=== PATIENT | female | born 1985 | race Caucasian/White ===

== ENCOUNTER 2018-08-04 07:50 | Inpatient (IN) ==
[2018-08-04] MEDS ORDERED: Bacitracin/Polymyxin B PACKET TP STA (08:00)
[2018-08-04] MEDS ORDERED: Tdap (Boostrix) Vaccine 0.5 ML SYRINGE IM ONE (08:00)
--- NOTE | 2018-08-04 08:05 | Emergency Department Note ---
Disposition Clinical Impression: Laceration, Suicidal ideation UTI (urinary tract infection) Qualifiers: Urinary tract infection type: acute cystitis Hematuria presence: without hematuria Qualified Code(s): N30.00 - Acute cystitis without hematuria Disposition: Admitted As Inpatient Condition: Good Time of Disposition: 12:18 General Adult HPI - General Chief complaint: ED Wound/Laceration Stated complaint: self inflicted r arm injury Time Seen by Provider: 08/04/18 07:51 Source: patient Mode of arrival: EMS Limitations: no limitations Nursing Notes Reviewed: Yes Vital Signs Reviewed: Yes - History of Present Illness HPI Narrative: Alert and oriented nontoxic-appearing 33-year-old female presents by EMS for evaluation after self-inflicted laceration to the right forearm. She states a long-standing history of "cutting" in an attempt to vent whenever her anxiety increases. She states that she has cut herself on numerous instances in the past. She denies this being any type of attempt to inflict permanent, long lasting, or serious self-harm. She denies any current suicidal ideations. She denies any homicidal ideations. She denies any auditory or visual hallucinations. She states that she had been followed with a psychiatrist however has not been seen by said psychiatrist for approximately one year after "missing an appointment" and being discharged from the practice. She states that she had been medicated for bipolar disorder as well as anxiety. She has been off her medications for the past one year. She has no additional complaints at the time of her arrival. Tetanus immunization status is not up-to -date. Onset (ago): hour(s) (Approximately 1 hour prior to arrival) Location: right, upper extremity Pain Severity: moderate Pain Scale: 5 Quality: aching Consistency: constant Improves with: nothing Worsens with: nothing Treatments Prior to Arrival: other (Bandage) - Related Data Home Medications Medication Instructions Recorded Confirmed Tylenol 01/21/18 Previous Rx's Medication Instructions Recorded Albuterol Sulfate [Albuterol 1 - 2 puff IH Q6HR PRN #1 01/21/18 Inhaler] [email or web address] Amoxicillin 875 mg PO BID #20 tablet 01/21/18 predniSONE [PredniSONE] 0 mg PO DAILY #10 tablet 01/21/18 Azithromycin [Zithromax] 0 tab PO DAILY #6 tablet 01/27/18 Cyclobenzaprine [Flexeril] 10 mg PO HS PRN #10 tablet 01/27/18 Ibuprofen [Ibu] 600 mg PO Q6H PRN #30 tablet 07/07/18 Allergies Allergy/AdvReac Type Severity Reaction Status Date / Time Iodinated Contrast- Oral and Allergy Swelling Verified 08/01/18 20:56 IV Dye of [Iodinated Contrast Media - Lip/Tongue/Throat IV Dye] chlorpromazine AdvReac Cramping Verified 08/01/18 20:56 [From Thorazine] of the Muscles tramadol AdvReac Vomiting Verified 08/01/18 20:56 trazodone AdvReac Joint Pain Verified 08/01/18 20:56 All systems ED: reviewed and negative except as stated. Review of Systems: As Per HPI Constitutional: Denies: fever, chills, weakness, weight change Eyes: Denies: eye pain, eye discharge, vision change ENT ED: Denies: ear pain, throat pain, dental pain, hearing loss, epistaxis, congestion, dysphagia Cardiovascular: Denies: chest pain, palpitations, dyspnea on exertion, edema, syncope Respiratory: Denies: cough, dyspnea, wheezes, hemoptysis, stridor Gastrointestinal: Denies: abdominal pain, nausea, vomiting, diarrhea, constipation, hematemesis, melena, hematochezia Genitourinary: Denies: dysuria, frequency, hematuria, discharge Musculoskeletal: Denies: back pain, neck pain, arthralgia, myalgia Integumentary: Reports: as per HPI, other (Right forearm laceration). Denies: rash, abrasion, lesions Neurological: Denies: headache, weakness, numbness, paresthesias, confusion, abnormal gait, vertigo Psychiatric: Denies: anxiety, depression, suicidal thoughts, homicidal thoughts , auditory hallucinations, visual hallucinations Endocrine: Denies: fatigue Hematological/Lymphatic: Denies: easy bleeding, easy bruising Allergic/Immunologic: Denies: facial swelling, urticaria Past Medical History - Past Medical History Attestation: Yes The following information was validated with the patient. Source: patient, nursing notes reviewed Medical history: Reports: asthma, diabetes Surgical history: Reports: no surgical history Psychiatric history: Reports: anxiety, bipolar, depression COUNSELOR DORMITORY history: Reports: spontaneous , other - Social History Smoking Status: Current every day smoker Smokeless Tobacco Status: No Alcohol use: Reports: rarely Drug use: Reports: methamphetamine, prescription drug abuse Physical Exam - General Limitations: no limitations General appearance: alert, in no apparent distress - Head Head exam: atraumatic, normocephalic, normal inspection - Eye Eye exam: Present: normal appearance, PERRL, EOMI. Absent: nystagmus - ENT ENT exam: mucous membranes moist - Neck Neck exam: Present: normal inspection, full ROM, trachea midline - Chest Chest inspection: Present: normal inspection, symmetric chest wall rise - Respiratory Respiratory exam: Present: normal lung sounds bilaterally. Absent: respiratory distress, wheezes, stridor, accessory muscle use, prolonged expiratory phase - Cardiovascular Cardiovascular exam: Present: regular rate, normal rhythm, normal heart sounds - Abdominal Exam Abdominal exam: Present: soft, Non-Tender, normal bowel sounds - Expanded Upper Extremity Exam Forearm/Wrist exam: Present: laceration Neuromotor exam: Normal: wrist extension, thumb opposition, fingers 2-5 abduction Neurosensory exam: Normal: radial nerve, ulnar nerve, 2-point discrimination Hand tendon exam: Normal: flexor digitorum profundus (location), extensor tendon (location) Vascular exam: Normal: capillary refill, radial pulse, ulnar pulse - Neurological Exam Neurological exam: Present: alert, oriented X3 - Psychiatric Psychiatric exam: Present: normal affect, normal mood. Absent: depressed, agitated, anxious, homicidal ideation, suicidal ideation - Skin Skin exam: Present: warm, dry, normal color - Expanded Skin Exam Type of lesion: Present: laceration Distribution: RUE 1 - Linear laceration noted that extends from just proximal to the right wrist to the region just distal to the right antecubital region. At its deepest point , the laceration measures approximately 0.2 cm. Wound margins well approximated. Scant bleeding noted at this time. No foreign bodies or debris. Course Course Narrative: Laceration cleansed thoroughly prior to any attempts at closure. No obvious retained foreign body or debris. Laceration repair performed by Nash, medical student, under my direct supervision. Please see Nash's procedure note for wound closure details. 0945: The patient is slightly hypokalemic at 3.3 and her urinalysis shows a nitrite positive urinary tract infection, both of which will have treatment initiated here in the emergency department. I spoke with Sujatha, nurse with [facility]. And he states that client support representative from inpatient psychiatry will evaluate the patient as soon as possible. 1215: I have been normal notified by [facility] personnel that the patient will be admitted to the inpatient psychiatric unit for further management, as the patient is not currently under the care/management of a psychiatrist for her anxiety, as well as the fact that today's self-inflicted laceration is deeper and more extensive than she has accomplished in the past. Vital Signs Temperature 99.4 F 08/04/18 07:56 Pulse Rate 96 08/04/18 07:56 Respiratory Rate 16 08/04/18 07:56 Blood Pressure 154/111 08/04/18 07:56 O2 Sat by Pulse Oximetry 98 08/04/18 07:56 Temperature 97.7 F 08/04/18 11:20 Pulse Rate 65 08/04/18 11:20 Respiratory Rate 16 08/04/18 11:20 Blood Pressure 117/75 08/04/18 11:20 O2 Sat by Pulse Oximetry 97 08/04/18 11:20 Oxygen Delivery Oxygen Delivery Room Air Medical Decision Making - Medical Records Medical records reviewed: Yes I reviewed the patient's medical records. - Lab Data Lab results reviewed: Yes I reviewed the patient's lab results. Lab results narrative: Lab Results 08/04/18 08/04/18 08/04/18 Range/Units 08:14 08:14 08:14 WBC (4.3-11.1) K/mcL RBC (3.82-4.97) M/mcL Hgb (11.5-15.4) g/dL Hct (35.3-44.9) % MCV (83.0-100.0) fL MCH (28.0-33.3) pg MCHC (31.6-35.5) g/dL RDW (11.5-14.5) % Plt Count (140-400) K/mcL MPV (9.4-12.4) fL Immature Gran % (0-4) % Seg Neutrophils % % Lymphocytes % % Monocytes % % Eosinophils % % Basophils % % Neutrophils # (1.6-8.9) K/mcL Lymphocytes # (0.6-4.6) K/mcL Monocytes # (0.0-1.3) K/mcL Eosinophils # (0.0-0.6) K/mcL Basophils # (0.0-0.2) K/mcL Sodium (136-145) mEq/L Potassium (3.5-5.1) mEq/L Chloride (98-107) mEq/L Carbon Dioxide (23-29) mEq/L BUN (6-20) mg/dL Creatinine (0.60-1.20) mg/dL Est GFR ( Amer) (> 60) Est GFR (Non-Af Amer) (> 60) BUN/Creatinine Ratio (6-26) Glucose (70-105) mg/dL Calculated Osmolality (280-300) Calcium (8.6-10.3) mg/dL Urine Color Dark Yellow (Yellow) Urine Clarity Clear (Clear) Urine pH 6.0 (5.0-8.0) pH Units Ur Specific [place] > 1.030 H (1.010-1.025) Urine Protein 100 H (Neg-Trace) mg/dL Urine Glucose (UA) Normal (Normal) mg/dL Urine Ketones Trace H (Negative) mg/dL Urine Blood Negative (Negative) Urine Nitrite Positive A (Negative) Urine Bilirubin Negative (Negative) Urine Urobilinogen Normal (Normal) mg/dL Ur Leukocyte Esterase Small H (Negative) Urine Microscopic RBC 0-3 (0-3) per hpf Urine Microscopic WBC 5-15 H (0-3) per hpf Ur Squamous Epith Cells Many H (None-Few) per lpf Calcium Oxalate Crystal Present Urine Bacteria Many H (None-Few) per hpf Hyaline Casts Few (None-Few) per lpf Urine Test Negative (Negative) Salicylates (15.0-30.0) mg/dL Urine Opiates Screen Negative (Bxpnuf=192) ng/mL Acetaminophen (10-20) mcg/mL Ur Barbiturates Screen Negative (Omnvxb=130) ng/mL Ur Phencyclidine Scrn Negative (Cutoff=25) ng/mL Ur Amphetamines Screen Positive H (Xnozix=0092) ng/mL U Benzodiazepines Scrn Negative (Imrpyo=806) ng/mL Urine Cocaine Screen Negative (Cutoff= 300) ng/mL U Marijuana (THC) Screen Negative (Cutoff = 50) ng/mL Ur Drug Screen Interp See Below Ethyl Alcohol (Less than 10) mg/dL 08/04/18 08/04/18 Range/Units 08:59 08:59 WBC 11.9 H (4.3-11.1) K/mcL RBC 4.83 (3.82-4.97) M/mcL Hgb 14.8 (11.5-15.4) g/dL Hct 43.2 (35.3-44.9) % MCV 89.4 (83.0-100.0) fL MCH 30.6 (28.0-33.3) pg MCHC 34.3 (31.6-35.5) g/dL RDW 12.6 (11.5-14.5) % Plt Count 236 (140-400) K/mcL MPV 11.4 (9.4-12.4) fL Immature Gran % 0.3 (0-4) % Seg Neutrophils % 53.5 % Lymphocytes % 36.0 % Monocytes % 7.2 % Eosinophils % 2.4 % Basophils % 0.6 % Neutrophils # 6.4 (1.6-8.9) K/mcL Lymphocytes # 4.3 (0.6-4.6) K/mcL Monocytes # 0.9 (0.0-1.3) K/mcL Eosinophils # 0.3 (0.0-0.6) K/mcL Basophils # 0.1 (0.0-0.2) K/mcL Sodium 140 (136-145) mEq/L Potassium 3.3 L (3.5-5.1) mEq/L Chloride 106 (98-107) mEq/L Carbon Dioxide 28 (23-29) mEq/L BUN 14 (6-20) mg/dL Creatinine 0.80 (0.60-1.20) mg/dL Est GFR ( Amer) > 60 (> 60) Est GFR (Non-Af Amer) > 60 (> 60) BUN/Creatinine Ratio 18 (6-26) Glucose 107 H (70-105) mg/dL Calculated Osmolality 291 (280-300) Calcium 10.2 (8.6-10.3) mg/dL Urine Color (Yellow) Urine Clarity (Clear) Urine pH (5.0-8.0) pH Units Ur Specific [place] (1.010-1.025) Urine Protein (Neg-Trace) mg/dL Urine Glucose (UA) (Normal) mg/dL Urine Ketones (Negative) mg/dL Urine Blood (Negative) Urine Nitrite (Negative) Urine Bilirubin (Negative) Urine Urobilinogen (Normal) mg/dL Ur Leukocyte Esterase (Negative) Urine Microscopic RBC (0-3) per hpf Urine Microscopic WBC (0-3) per hpf Ur Squamous Epith Cells (None-Few) per lpf Calcium Oxalate Crystal Urine Bacteria (None-Few) per hpf Hyaline Casts (None-Few) per lpf Urine Test (Negative) Salicylates < 2.5 L (15.0-30.0) mg/dL Urine Opiates Screen (Vhywwl=952) ng/mL Acetaminophen < 10 L (10-20) mcg/mL Ur Barbiturates Screen (Mbkuis=160) ng/mL Ur Phencyclidine Scrn (Cutoff=25) ng/mL Ur Amphetamines Screen (Skkzkk=3656) ng/mL U Benzodiazepines Scrn (Jakhzv=969) ng/mL Urine Cocaine Screen (Cutoff= 300) ng/mL U Marijuana (THC) Screen (Cutoff = 50) ng/mL Ur Drug Screen Interp Ethyl Alcohol < 10 (Less than 10) mg/dL Result diagrams: 08/04/18 08:59 08/04/18 08:59 Lab Results 08/04/18 08/04/18 08/04/18 Range/Units 08:14 08:14 08:14 WBC (4.3-11.1) K/mcL RBC (3.82-4.97) M/mcL Hgb (11.5-15.4) g/dL Hct (35.3-44.9) % MCV (83.0-100.0) fL MCH (28.0-33.3) pg MCHC (31.6-35.5) g/dL RDW (11.5-14.5) % Plt Count (140-400) K/mcL MPV (9.4-12.4) fL Immature Gran % (0-4) % Seg Neutrophils % % Lymphocytes % % Monocytes % % Eosinophils % % Basophils % % Neutrophils # (1.6-8.9) K/mcL Lymphocytes # (0.6-4.6) K/mcL Monocytes # (0.0-1.3) K/mcL Eosinophils # (0.0-0.6) K/mcL Basophils # (0.0-0.2) K/mcL Sodium (136-145) mEq/L Potassium (3.5-5.1) mEq/L Chloride (98-107) mEq/L Carbon Dioxide (23-29) mEq/L BUN (6-20) mg/dL Creatinine (0.60-1.20) mg/dL Est GFR ( Amer) (> 60) Est GFR (Non-Af Amer) (> 60) BUN/Creatinine Ratio (6-26) Glucose (70-105) mg/dL Calculated Osmolality (280-300) Calcium (8.6-10.3) mg/dL Urine Color Dark Yellow (Yellow) Urine Clarity Clear (Clear) Urine pH 6.0 (5.0-8.0) pH Units Ur Specific [place] > 1.030 H (1.010-1.025) Urine Protein 100 H (Neg-Trace) mg/dL Urine Glucose (UA) Normal (Normal) mg/dL Urine Ketones Trace H (Negative) mg/dL Urine Blood Negative (Negative) Urine Nitrite Positive A (Negative) Urine Bilirubin Negative (Negative) Urine Urobilinogen Normal (Normal) mg/dL Ur Leukocyte Esterase Small H (Negative) Urine Microscopic RBC 0-3 (0-3) per hpf Urine Microscopic WBC 5-15 H (0-3) per hpf Ur Squamous Epith Cells Many H (None-Few) per lpf Calcium Oxalate Crystal Present Urine Bacteria Many H (None-Few) per hpf Hyaline Casts Few (None-Few) per lpf Urine Test Negative (Negative) Salicylates (15.0-30.0) mg/dL Urine Opiates Screen Negative (Rgakag=795) ng/mL Acetaminophen (10-20) mcg/mL Ur Barbiturates Screen Negative (Enaixg=662) ng/mL Ur Phencyclidine Scrn Negative (Cutoff=25) ng/mL Ur Amphetamines Screen Positive H (Dikyvu=9636) ng/mL U Benzodiazepines Scrn Negative (Prpkuz=638) ng/mL Urine Cocaine Screen Negative (Cutoff= 300) ng/mL U Marijuana (THC) Screen Negative (Cutoff = 50) ng/mL Ur Drug Screen Interp See Below Ethyl Alcohol (Less than 10) mg/dL 08/04/18 08/04/18 Range/Units 08:59 08:59 WBC 11.9 H (4.3-11.1) K/mcL RBC 4.83 (3.82-4.97) M/mcL Hgb 14.8 (11.5-15.4) g/dL Hct 43.2 (35.3-44.9) % MCV 89.4 (83.0-100.0) fL MCH 30.6 (28.0-33.3) pg MCHC 34.3 (31.6-35.5) g/dL RDW 12.6 (11.5-14.5) % Plt Count 236 (140-400) K/mcL MPV 11.4 (9.4-12.4) fL Immature Gran % 0.3 (0-4) % Seg Neutrophils % 53.5 % Lymphocytes % 36.0 % Monocytes % 7.2 % Eosinophils % 2.4 % Basophils % 0.6 % Neutrophils # 6.4 (1.6-8.9) K/mcL Lymphocytes # 4.3 (0.6-4.6) K/mcL Monocytes # 0.9 (0.0-1.3) K/mcL Eosinophils # 0.3 (0.0-0.6) K/mcL Basophils # 0.1 (0.0-0.2) K/mcL Sodium 140 (136-145) mEq/L Potassium 3.3 L (3.5-5.1) mEq/L Chloride 106 (98-107) mEq/L Carbon Dioxide 28 (23-29) mEq/L BUN 14 (6-20) mg/dL Creatinine 0.80 (0.60-1.20) mg/dL Est GFR ( Amer) > 60 (> 60) Est GFR (Non-Af Amer) > 60 (> 60) BUN/Creatinine Ratio 18 (6-26) Glucose 107 H (70-105) mg/dL Calculated Osmolality 291 (280-300) Calcium 10.2 (8.6-10.3) mg/dL Urine Color (Yellow) Urine Clarity (Clear) Urine pH (5.0-8.0) pH Units Ur Specific [place] (1.010-1.025) Urine Protein (Neg-Trace) mg/dL Urine Glucose (UA) (Normal) mg/dL Urine Ketones (Negative) mg/dL Urine Blood (Negative) Urine Nitrite (Negative) Urine Bilirubin (Negative) Urine Urobilinogen (Normal) mg/dL Ur Leukocyte Esterase (Negative) Urine Microscopic RBC (0-3) per hpf Urine Microscopic WBC (0-3) per hpf Ur Squamous Epith Cells (None-Few) per lpf Calcium Oxalate Crystal Urine Bacteria (None-Few) per hpf Hyaline Casts (None-Few) per lpf Urine Test (Negative) Salicylates < 2.5 L (15.0-30.0) mg/dL Urine Opiates Screen (Txtzpe=231) ng/mL Acetaminophen < 10 L (10-20) mcg/mL Ur Barbiturates Screen (Lzhtby=593) ng/mL Ur Phencyclidine Scrn (Cutoff=25) ng/mL Ur Amphetamines Screen (Obxdvr=1033) ng/mL U Benzodiazepines Scrn (Fifdvz=854) ng/mL Urine Cocaine Screen (Cutoff= 300) ng/mL U Marijuana (THC) Screen (Cutoff = 50) ng/mL Ur Drug Screen Interp Ethyl Alcohol < 10 (Less than 10) mg/dL
[2018-08-04] MEDS ORDERED: Lidocaine/EPI 1:100k 1% 30 ML VIAL INFILT ONE (08:07)
--- NOTE | 2018-08-04 08:11 | Emergency Department Note ---
Disposition Clinical Impression: Laceration, Suicidal ideation UTI (urinary tract infection) Qualifiers: Urinary tract infection type: acute cystitis Hematuria presence: without hematuria Qualified Code(s): N30.00 - Acute cystitis without hematuria Disposition: Admitted As Inpatient Time of Disposition: 12:45 General Adult HPI - General Chief complaint: ED Wound/Laceration Stated complaint: self inflicted r arm injury Time Seen by Provider: 08/04/18 07:51 Source: patient Mode of arrival: EMS Limitations: no limitations - History of Present Illness Location: right, upper extremity Pain Scale: 5 Quality: aching Improves with: nothing Worsens with: nothing Treatments Prior to Arrival: other (Bandage) - Related Data Home Medications Medication Instructions Recorded Confirmed Tylenol 01/21/18 Previous Rx's Medication Instructions Recorded Albuterol Sulfate [Albuterol 1 - 2 puff IH Q6HR PRN #1 01/21/18 Inhaler] [email or web address] Amoxicillin 875 mg PO BID #20 tablet 01/21/18 predniSONE [PredniSONE] 0 mg PO DAILY #10 tablet 01/21/18 Azithromycin [Zithromax] 0 tab PO DAILY #6 tablet 01/27/18 Cyclobenzaprine [Flexeril] 10 mg PO HS PRN #10 tablet 01/27/18 Ibuprofen [Ibu] 600 mg PO Q6H PRN #30 tablet 07/07/18 Allergies Allergy/AdvReac Type Severity Reaction Status Date / Time Iodinated Contrast- Oral and Allergy Swelling Verified 08/01/18 20:56 IV Dye of [Iodinated Contrast Media - Lip/Tongue/Throat IV Dye] chlorpromazine AdvReac Cramping Verified 08/01/18 20:56 [From Thorazine] of the Muscles tramadol AdvReac Vomiting Verified 08/01/18 20:56 trazodone AdvReac Joint Pain Verified 08/01/18 20:56 Constitutional: Denies: fever, chills, weakness, weight change Eyes: Denies: eye pain, eye discharge, vision change ENT ED: Denies: ear pain, throat pain, dental pain, hearing loss, epistaxis, congestion, dysphagia Cardiovascular: Denies: chest pain, palpitations, dyspnea on exertion, edema, syncope Respiratory: Denies: cough, dyspnea, wheezes, hemoptysis, stridor Gastrointestinal: Denies: abdominal pain, nausea, vomiting, diarrhea, constipation, hematemesis, melena, hematochezia Genitourinary: Denies: dysuria, frequency, hematuria, discharge Musculoskeletal: Denies: back pain, neck pain, arthralgia, myalgia Integumentary: Reports: as per HPI, other (Right forearm laceration). Denies: rash, abrasion, lesions Neurological: Denies: headache, weakness, numbness, paresthesias, confusion, abnormal gait, vertigo Psychiatric: Denies: anxiety, depression, suicidal thoughts, homicidal thoughts , auditory hallucinations, visual hallucinations Endocrine: Denies: fatigue Hematological/Lymphatic: Denies: easy bleeding, easy bruising Allergic/Immunologic: Denies: facial swelling, urticaria Past Medical History - Past Medical History Medical history: Reports: asthma, diabetes Surgical history: Reports: no surgical history Psychiatric history: Reports: anxiety, bipolar, depression FEE CLERK history: Reports: spontaneous , other - Social History Smoking Status: Current every day smoker Smokeless Tobacco Status: No Alcohol use: Reports: rarely Drug use: Reports: methamphetamine, prescription drug abuse Physical Exam - General Limitations: no limitations General appearance: alert, in no apparent distress Course Vital Signs Temperature 99.4 F 08/04/18 07:56 Pulse Rate 96 08/04/18 07:56 Respiratory Rate 16 08/04/18 07:56 Blood Pressure 154/111 08/04/18 07:56 O2 Sat by Pulse Oximetry 98 08/04/18 07:56 Temperature 97.7 F 08/04/18 11:20 Pulse Rate 65 08/04/18 11:20 Respiratory Rate 16 08/04/18 11:20 Blood Pressure 117/75 08/04/18 11:20 O2 Sat by Pulse Oximetry 97 08/04/18 11:20 Oxygen Delivery Oxygen Delivery Room Air Procedures - Laceration Laceration 1 Site: upper extremity Side (If applicable): right Description: linear Depth: simple, single layer Local Anesthetic: lidocaine 1%, with epi Amount of Anesthesia Used (mL): 5 Pre-repair: wound explored, irrigated extensively, deep structures intact Skin layer closed with: nylon Size: 4-0 Number of sutures/guerline: 10 Technique: simple, interrupted Medical Decision Making - Lab Data Result diagrams: 08/04/18 08:59 08/04/18 08:59 Lab Results 08/04/18 08/04/1808/04/18 Range/Units 08:14 08:14 08:14 WBC (4.3-11.1) K/mcL RBC (3.82-4.97) M/mcL Hgb (11.5-15.4) g/dL Hct (35.3-44.9) % MCV (83.0-100.0) fL MCH (28.0-33.3) pg MCHC (31.6-35.5) g/dL RDW (11.5-14.5) % Plt Count (140-400) K/mcL MPV (9.4-12.4) fL Immature Gran % (0-4) % Seg Neutrophils % % Lymphocytes % % Monocytes % % Eosinophils % % Basophils % % Neutrophils # (1.6-8.9) K/mcL Lymphocytes # (0.6-4.6) K/mcL Monocytes # (0.0-1.3) K/mcL Eosinophils # (0.0-0.6) K/mcL Basophils # (0.0-0.2) K/mcL Sodium (136-145) mEq/L Potassium (3.5-5.1) mEq/L Chloride (98-107) mEq/L Carbon Dioxide (23-29) mEq/L BUN (6-20) mg/dL Creatinine (0.60-1.20) mg/dL Est GFR ( Amer) (> 60) Est GFR (Non-Af Amer) (> 60) BUN/Creatinine Ratio (6-26) Glucose (70-105) mg/dL Calculated Osmolality (280-300) Calcium (8.6-10.3) mg/dL Urine Color Dark Yellow (Yellow) Urine Clarity Clear (Clear) Urine pH 6.0 (5.0-8.0) pH Units Ur Specific [place] > 1.030 H (1.010-1.025) Urine Protein 100 H (Neg-Trace) mg/dL Urine Glucose (UA) Normal (Normal) mg/dL Urine Ketones Trace H (Negative) mg/dL Urine Blood Negative (Negative) Urine Nitrite Positive A (Negative) Urine Bilirubin Negative (Negative) Urine Urobilinogen Normal (Normal) mg/dL Ur Leukocyte Esterase Small H (Negative) Urine Microscopic RBC 0-3 (0-3) per hpf Urine Microscopic WBC 5-15 H (0-3) per hpf Ur Squamous Epith Cells Many H (None-Few) per lpf Calcium Oxalate Crystal Present Urine Bacteria Many H (None-Few) per hpf Hyaline Casts Few (None-Few) per lpf Urine Test Negative (Negative) Salicylates (15.0-30.0) mg/dL Urine Opiates Screen Negative (Vvhvrm=274) ng/mL Acetaminophen (10-20) mcg/mL Ur Barbiturates Screen Negative (Wqjyfu=471) ng/mL Ur Phencyclidine Scrn Negative (Cutoff=25) ng/mL Ur Amphetamines Screen Positive H (Cnetmk=9771) ng/mL U Benzodiazepines Scrn Negative (Nozmtx=457) ng/mL Urine Cocaine Screen Negative (Cutoff= 300) ng/mL U Marijuana (THC) Screen Negative (Cutoff = 50) ng/mL Ur Drug Screen Interp See Below Ethyl Alcohol (Less than 10) mg/dL 08/04/18 08/04/18 Range/Units 08:59 08:59 WBC 11.9 H (4.3-11.1) K/mcL RBC 4.83 (3.82-4.97) M/mcL Hgb 14.8 (11.5-15.4) g/dL Hct 43.2 (35.3-44.9) % MCV 89.4 (83.0-100.0) fL MCH 30.6 (28.0-33.3) pg MCHC 34.3 (31.6-35.5) g/dL RDW 12.6 (11.5-14.5) % Plt Count 236 (140-400) K/mcL MPV 11.4 (9.4-12.4) fL Immature Gran % 0.3 (0-4) % Seg Neutrophils % 53.5 % Lymphocytes % 36.0 % Monocytes % 7.2 % Eosinophils % 2.4 % Basophils % 0.6 % Neutrophils # 6.4 (1.6-8.9) K/mcL Lymphocytes # 4.3 (0.6-4.6) K/mcL Monocytes # 0.9 (0.0-1.3) K/mcL Eosinophils # 0.3 (0.0-0.6) K/mcL Basophils # 0.1 (0.0-0.2) K/mcL Sodium 140 (136-145) mEq/L Potassium 3.3 L (3.5-5.1) mEq/L Chloride 106 (98-107) mEq/L Carbon Dioxide 28 (23-29) mEq/L BUN 14 (6-20) mg/dL Creatinine 0.80 (0.60-1.20) mg/dL Est GFR ( Amer) > 60 (> 60) Est GFR (Non-Af Amer) > 60 (> 60) BUN/Creatinine Ratio 18 (6-26) Glucose 107 H (70-105) mg/dL Calculated Osmolality 291 (280-300) Calcium 10.2 (8.6-10.3) mg/dL Urine Color (Yellow) Urine Clarity (Clear) Urine pH (5.0-8.0) pH Units Ur Specific [place] (1.010-1.025) Urine Protein (Neg-Trace) mg/dL Urine Glucose (UA) (Normal) mg/dL Urine Ketones (Negative) mg/dL Urine Blood (Negative) Urine Nitrite (Negative) Urine Bilirubin (Negative) Urine Urobilinogen (Normal) mg/dL Ur Leukocyte Esterase (Negative) Urine Microscopic RBC (0-3) per hpf Urine Microscopic WBC (0-3) per hpf Ur Squamous Epith Cells (None-Few) per lpf Calcium Oxalate Crystal Urine Bacteria (None-Few) per hpf Hyaline Casts (None-Few) per lpf Urine Test (Negative) Salicylates < 2.5 L (15.0-30.0) mg/dL Urine Opiates Screen (Ywuqok=257) ng/mL Acetaminophen < 10 L (10-20) mcg/mL Ur Barbiturates Screen (Zveztu=755) ng/mL Ur Phencyclidine Scrn (Cutoff=25) ng/mL Ur Amphetamines Screen (Qconrv=1552) ng/mL U Benzodiazepines Scrn (Oxllsq=385) ng/mL Urine Cocaine Screen (Cutoff= 300) ng/mL U Marijuana (THC) Screen (Cutoff = 50) ng/mL Ur Drug Screen Interp Ethyl Alcohol < 10 (Less than 10) mg/dL Attestation Statement - Attestation Attestation: For this encounter, I have reviewed the RAT CULTURIST or PA documentation, treatment plan, and medical decision making; and I have had face to face time with this patient. Patient to ED with self inflected laceration to the right forearm. Patient states she has been very anxious and she cut herself for that. She states she cut deeper than she meant to. History of cutting in the past to her right thigh. She denies SI. She has a history of anxiety and bipolar for which she is off her medicines because she missed her appointments. Patient, cooperative on examination. She has a laceration the entire length of her right forearm. Plan. Sutured wound repair. Tetanus update. We will have her evaluated by 1A. Patient has been evaluated and they feel she is appropriate for admission. Isle slip on chart.
[2018-08-04 08:23] LABS: Bilirubin,Urine Negative (Negative); Blood,Urine Negative (Negative); Clarity,Urine Clear (Clear); Color,Urine Dark Yellow (Yellow); Glucose,Urine (UA) Normal (Normal); Ketones,Urine Trace mg/dL (Negative); Leukocyte Esterase,Urine Small (Negative); Nitrite,Urine Positive (Negative); Protein,Urine 100 mg/dL (Neg-Trace); Specific Gravity,Urine > 1.030 (1.010-1.025); Urobilinogen,Urine Normal (Normal)
[2018-08-04 08:25] LABS: Bacteria,Urine Many per hpf (None-Few); Hyaline Casts,Urine Few per lpf (None-Few); Squamous Epithelial Cell,Urine Many per lpf (None-Few)
[2018-08-04 08:35] LABS: Calcium Oxalate Crystals,Urine Present; RBC,Urine 0-3 per hpf (0-3)
[2018-08-04 09:17] LABS: Basophils # 0.1 K/mcL (0.0-0.2); Basophils % 0.6 %; Eosinophils # 0.3 K/mcL (0.0-0.6); Eosinophils % 2.4 %; Hematocrit 43.2 % (35.3-44.9); Hemoglobin 14.8 g/dL (11.5-15.4); Immature Granulocytes % 0.3 % (0-4); Lymphocytes # 4.3 K/mcL (0.6-4.6); Mean Corpuscular HGB Conc 34.3 g/dL (31.6-35.5); Mean Corpuscular Hemoglobin 30.6 pg (28.0-33.3); Mean Corpuscular Volume 89.4 fL (83.0-100.0); Mean Platelet Volume 11.4 fL (9.4-12.4); Monocytes # 0.9 K/mcL (0.0-1.3); Monocytes % 7.2 %; Neutrophils # 6.4 K/mcL (1.6-8.9); Platelet Count 236 K/mcL (140-400); Red Blood Count 4.83 M/mcL (3.82-4.97); Red Cell Distribution Width 12.6 % (11.5-14.5); Segmented Neutrophils % 53.5 %
[2018-08-04 09:27] LABS: Amphetamine Screen,Urine Positive ng/mL (Cutoff=1000); Barbiturate Screen,Urine Negative ng/mL (Cutoff=200); Benzodiazepines Screen,Urine Negative ng/mL (Cutoff=200); Cannabinoid Screen,Urine Negative ng/mL (Cutoff = 50); Cocaine Screen,Urine Negative ng/mL (Cutoff= 300); Opiate Screen,Urine Negative ng/mL (Cutoff=300); Phencyclidine Screen,Urine Negative ng/mL (Cutoff=25)
[2018-08-04 09:39] LABS: Acetaminophen < 10 mcg/mL (10-20); BUN/Creatinine Ratio 18 (6-26); Blood Urea Nitrogen 14 mg/dL (6-20); Calcium 10.2 mg/dL (8.6-10.3); Carbon Dioxide 28 mEq/L (23-29); Chloride 106 mEq/L (98-107); Ethanol < 10 mg/dL (Less than 10); Glucose 107 mg/dL (70-105); Osmolality,Calculated 291 (280-300); Potassium 3.3 mEq/L (3.5-5.1); Salicylate < 2.5 mg/dL (15.0-30.0); Sodium 140 mEq/L (136-145); eGFR For Non-African Americans > 60 (> 60)
[2018-08-04] MEDS ORDERED: Sulfamethoxazole/Trimeth DS 1 EACH TABLET PO ONE (09:40)
[2018-08-04] MEDS ORDERED: *HR* LORazepam 2 MG/ML VIAL IM PRN (15:27)
[2018-08-04] MEDS ORDERED: Mag Hydrox/Al Hydrox/Simeth 30 ML UDC PO PRN (15:27)
[2018-08-04] MEDS ORDERED: *HR* LORazepam 1 MG TABLET PO PRN (15:27)
[2018-08-04] MEDS ORDERED: Haloperidol Lactate 5 MG/ML VIAL IM PRN (15:27)
[2018-08-04] MEDS ORDERED: MOM Conc 10 ML UD.LIQ PO PRN (15:27)
[2018-08-04] MEDS ORDERED: Nicotine 21 MG PATCH.TD24 TD STA ×2 (20:11→20:13)
[2018-08-04] MEDS: *HR* HYDROcodone/Acet 5/325 mg TABLET PO PRN (20:16)
[2018-08-04] MEDS: hydrOXYzine pamoate 25 MG CAPSULE PO PRN (20:20)
[2018-08-05] MEDS: *HR* HYDROcodone/Acet 5/325 mg TABLET PO PRN ×3 (04:48→21:01)
[2018-08-05] MEDS: Acetaminophen 325 MG TABLET PO PRN ×2 (08:52→14:42)
--- NOTE | 2018-08-05 11:16 | Psychiatry History & Physical ---
Date of Encounter: 08/05/18 Time of Encounter: 10:45 History of Present Illness Patient Stated Chief Complaint: i cut my self because i was very anxious Medicare Admission Attestation: For traditional Medicare patients the provided hospital inpatient services are reasonable and necessary and in the case of services not specified as inpatient -only under 42 CFR 419.22 (n), that they are appropriately provided as inpatient services in accordance 42 CFR 412.3. For Critical Access Hospital the patient may reasonably be expected to be discharged or transferred to a hospital within 96 hours after admission to the Critical Access Hospital. Admitted From: Emergency Dept Plans for Post Hospital Care: Home History of Present Illness: Ms. Johnson is a 33 year old female evaluated today. She had cut herself and got 10 stitches, she denied suicidal ideation states stressed and had panic attack , states in this siyuation i was mad and my BF was yelling so i cut it , was impuslive , angry and had used methamphetamine iv2 -3 days ago. She has been to ER last week for anxiety attack and was discharged. She has h/o Bipolar/anxiety/depression, cutting behaviours , she has been been off her medication for 1 year after was fired from her psychiatrist for missing appointment. she has have episode of kit and depression even before she started drugs. she has problem with sleep, moods, racing thoughts and impulsive , denies any psychosis, she uses meth in binges every 1-2 months for 1 week and uses iv meth. denies any other drugs or alcohol at present , she is not suicidal but has been impulsive , increase anxiety and panic attacks. Past psych : She was dx Bipolar/panic attacks, no treatment since 1 yr . has prior psych. inpatient. first time treated was in 2007. Social hx: lives with BF , unemployed , looking for job, no children, no legal. Medical obesity :, asthma, diabetes diet control deg. disc disease and carpel tunnel. Family h/o menatl illness, mother bipolar and depression and has attempted suicide. A/P: Bipolar Affective Disorder Panic attacks meth abuse. Patient has cut self and required 10 stitches and has anxiety and dperession , she denies si at present , will start medication and inpatient stabilization at present for safety. wound care bid and prn pain medication. Past Med Surg Social Fam HX - Past Medical History Medical history: asthma, diabetes - Past Psychiatric History Psychiatric history: Reports: bipolar, depression, prior suicide attempt, previous psychiatric hospitalization Family psychiatric history: Yes Family History of Suicide: Attempted - Past Surgical History Surgical History: cholecystectomy - Social History Smoking Status: Current every day smoker Smokeless Tobacco Status: No Alcohol use: rarely Drug use: methamphetamine, prescription drug abuse Occupational status: unemployed Current living situation: Home, With Family Activity Level: Independent ambulation Recent Out of Country Travel Within the Last 8 Weeks: No Exposure or Possible Exposure to Illness During Travel: No Medications & Allergies 3 Allergy/AdvReac Type Severity Reaction Status Date / Time Iodinated Contrast- Oral and Allergy Swelling Verified 08/01/18 20:56 IV Dye of [Iodinated Contrast Media - Lip/Tongue/Throat IV Dye] chlorpromazine AdvReac Cramping Verified 08/01/18 20:56 [From Thorazine] of the Muscles tramadol AdvReac Vomiting Verified 08/01/18 20:56 trazodone AdvReac Joint Pain Verified 08/01/18 20:56 Review of Systems Constitutional: Denies: fever, chills, weakness, weight change Eyes: Denies: eye pain, vision change Ears, Nose, Throat: Denies: ear pain, throat pain, dental pain, hearing loss, congestion Cardiovascular: Denies: chest pain, palpitations, dyspnea on exertion Respiratory: Denies: cough, dyspnea, wheezes Gastrointestinal: Denies: abdominal pain, nausea, vomiting, diarrhea, constipation Genitourinary female: Denies: urgency, dysuria, frequency, abnormal menses, dyspareunia Musculoskeletal: Denies: joint swelling, joint pain Integumentary: Denies: rash, lesions, pruritus Neurological: Denies: headache, weakness, numbness, memory loss Psychiatric: Reports: depression, anxiety, abnormal sleep pattern, irritability Endocrine: Denies: fatigue, heat or cold intolerance Hematologic/Lymphatic: Denies: easy bruising, lymphadenopathy Allergic/Immunologic: Denies: urticaria, itchy eyes Exam - HEENT Head exam IM: Present: atraumatic (pa) Eye exam IM: Present: EOMI, normal appearance, PERRL ENT exam IM: Present: normal exam - Neurological Neurological exam: Present: CN II-XII intact - Respiratory Respiratory exam IM: Present: CTAB - GI/Abdominal GI/Abdominal exam IM: Present: normal bowel sounds, soft. Absent: tenderness - Extremities Extremities exam IM: Present: full ROM - Skin Skin exam IM: Present: dry, warm - Additional Information Additional Information: patient has laceration on her right hand and has required 10 stitches. - Constitutional Vitals: Temp Pulse Resp BP Pulse Ox 98.4 F 85 18 125/87 97 08/05/18 09:00 08/05/18 09:00 08/05/18 09:00 08/05/18 09:00 08/04/18 11:20 General appearance: age & developmentally appropriate, well-groomed, well- nourished - Musculoskeletal Gait: normal Station: relaxed Strength & Tone: normal for patient - Psychiatric Patient Orientation: Yes Person, Yes Time, Yes Place Level of alertness: Alert Behavior: calm, cooperative Psychomotor activity: Normal Eye Contact: Maintains Eye Contact Mood Description: Anxious Affect description: congruent with mood Speech Volume: Normal Speech pattern: coherent, slowed Language & Vocabulary: consistent with education Thought Process: Racing Thought Content: Yes Intact Attention Span Ability: Capable of Focused Attention Memory Description: Grossly Intact Patient Reliability: Reliable Historian Fund of knowledge: Yes abstraction ability, Yes average Intelligence Estimate: Average Judgment: Limited Insight: Partial Results - Labs Labs: Laboratory Last Values WBC 11.9 K/mcL (4.3-11.1) H 08/04/18 08:59 RBC 4.83 M/mcL (3.82-4.97) 08/04/18 08:59 Hgb 14.8 g/dL (11.5-15.4) 08/04/18 08:59 Hct 43.2 % (35.3-44.9) 08/04/18 08:59 MCV 89.4 fL (83.0-100.0) 08/04/18 08:59 MCH 30.6 pg (28.0-33.3) 08/04/18 08:59 MCHC 34.3 g/dL (31.6-35.5) 08/04/18 08:59 RDW 12.6 % (11.5-14.5) 08/04/18 08:59 Plt Count 236 K/mcL (140-400) 08/04/18 08:59 MPV 11.4 fL (9.4-12.4) 08/04/18 08:59 Immature Gran % 0.3 % (0-4) 08/04/18 08:59 Seg Neutrophils % 53.5 % 08/04/18 08:59 Lymphocytes % 36.0 % 08/04/18 08:59 Monocytes % 7.2 % 08/04/18 08:59 Eosinophils % 2.4 % 08/04/18 08:59 Basophils % 0.6 % 08/04/18 08:59 Neutrophils # 6.4 K/mcL (1.6-8.9) 08/04/18 08:59 Lymphocytes # 4.3 K/mcL (0.6-4.6) 08/04/18 08:59 Monocytes # 0.9 K/mcL (0.0-1.3) 08/04/18 08:59 Eosinophils # 0.3 K/mcL (0.0-0.6) 08/04/18 08:59 Basophils # 0.1 K/mcL (0.0-0.2) 08/04/18 08:59 Sodium 140 mEq/L (136-145) 08/04/18 08:59 Potassium 3.3 mEq/L (3.5-5.1) L 08/04/18 08:59 Chloride 106 mEq/L (98-107) 08/04/18 08:59 Carbon Dioxide 28 mEq/L (23-29) 08/04/18 08:59 BUN 14 mg/dL (6-20) 08/04/18 08:59 Creatinine 0.80 mg/dL (0.60-1.20) 08/04/18 08:59 Est GFR ( Amer) > 60 (> 60) 08/04/18 08:59 Est GFR (Non-Af Amer) > 60 (> 60) 08/04/18 08:59 BUN/Creatinine Ratio 18 (6-26) 08/04/18 08:59 Glucose 107 mg/dL (70-105) H 08/04/18 08:59 Calculated Osmolality 291 (280-300) 08/04/18 08:59 Calcium 10.2 mg/dL (8.6-10.3) 08/04/18 08:59 Urine Color Dark Yellow (Yellow) 08/04/18 08:14 Urine Clarity Clear (Clear) 08/04/18 08:14 Urine pH 6.0 pH Units (5.0-8.0) 08/04/18 08:14 Ur Specific [place] > 1.030 (1.010-1.025) H 08/04/18 08:14 Urine Protein 100 mg/dL (Neg-Trace) H 08/04/18 08:14 Urine Glucose (UA) Normal mg/dL (Normal) 08/04/18 08:14 Urine Ketones Trace mg/dL (Negative) H 08/04/18 08:14 Urine Blood Negative (Negative) 08/04/18 08:14 Urine Nitrite Positive (Negative) A 08/04/18 08:14 Urine Bilirubin Negative (Negative) 08/04/18 08:14 Urine Urobilinogen Normal mg/dL (Normal) 08/04/18 08:14 Ur Leukocyte Esterase Small (Negative) H 08/04/18 08:14 Urine Microscopic RBC 0-3 per hpf (0-3) 08/04/18 08:14 Urine Microscopic WBC 5-15 per hpf (0-3) H 08/04/18 08:14 Ur Squamous Epith Cells Many per lpf (None-Few) H 08/04/18 08:14 Calcium Oxalate Crystal Present 08/04/18 08:14 Urine Bacteria Many per hpf (None-Few) H 08/04/18 08:14 Hyaline Casts Few per lpf (None-Few) 08/04/18 08:14 Urine Test Negative (Negative) 08/04/18 08:14 Salicylates < 2.5 mg/dL (15.0-30.0) L 08/04/18 08:59 Urine Opiates Screen Negative ng/mL (Snckdn=420) 08/04/18 08:14 Acetaminophen < 10 mcg/mL (10-20) L 08/04/18 08:59 Ur Barbiturates Screen Negative ng/mL (Oalrio=612) 08/04/18 08:14 Ur Phencyclidine Scrn Negative ng/mL (Cutoff=25) 08/04/18 08:14 Ur Amphetamines Screen Positive ng/mL (Yzhqcw=5949) H 08/04/18 08:14 U Benzodiazepines Scrn Negative ng/mL (Uadxjz=167) 08/04/18 08:14 Urine Cocaine Screen Negative ng/mL (Cutoff= 300) 08/04/18 08:14 U Marijuana (THC) Screen Negative ng/mL (Cutoff = 50) 08/04/18 08:14 Ur Drug Screen Interp See Below 08/04/18 08:14 Ethyl Alcohol < 10 mg/dL (Less than 10) 08/04/18 08:59 Assessment and Plan (1) Suicidal ideation Current visit: Yes Status: Chronic Plan: Admit inpatient for safety and stabilization, Close observation, Suicide Precautions per unit protocol, Encourage participation in unit milieu, Group Therapy, Monitor sleep, Monitor appetite, Secure weapons, Family/Supportive other meeting Risks, benefits, side effects, alternatives discussed w/pt: Yes (patient has h/o cutting self and as per cut too deep this time.) Patient agreeable to treatment: Yes (2) Anxiety Current visit: No Status: Acute Plan: Admit inpatient for safety and stabilization, Close observation, Suicide Precautions per unit protocol, Encourage participation in unit milieu, Group Therapy, Monitor sleep, Monitor appetite, Family/Supportive other meeting Risks, benefits, side effects, alternatives discussed w/pt: Yes Patient agreeable to treatment: Yes Plans for Post Hospital Care: at Home (3) Amphetamine use disorder, moderate Current visit: No Status: Acute Plan: Admit inpatient for safety and stabilization, Close observation, Suicide Precautions per unit protocol, Encourage participation in unit milieu, Group Therapy, Monitor sleep, Monitor appetite, Family/Supportive other meeting Risks, benefits, side effects, alternatives discussed w/pt: Yes Patient agreeable to treatment: Yes Plans for Post Hospital Care: at Home (4) Bipolar affective disorder Current visit: Yes Status: Acute Plan: Admit inpatient for safety and stabilization, Close observation, Suicide Precautions per unit protocol, Encourage participation in unit milieu, Group Therapy, Monitor sleep, Monitor appetite, Family/Supportive other meeting Risks, benefits, side effects, alternatives discussed w/pt: Yes Patient agreeable to treatment: Yes Plans for Post Hospital Care: at Home Qualifiers: Current bipolar episode type: depressed Current episode severity: moderate Qualified Code(s): F31.32 - Bipolar disorder, current episode depressed, moderate
[2018-08-05] MEDS: BuPROPion XL (24 HR) 150 MG TABLET PO SCH (12:08)
[2018-08-05] MEDS: Divalproex (12 HR) 250 MG TABLET PO SCH (20:59)
[2018-08-05] MEDS: hydrOXYzine pamoate 25 MG CAPSULE PO PRN (21:01)
[2018-08-06] MEDS: Divalproex (12 HR) 250 MG TABLET PO SCH ×2 (09:18→20:11)
[2018-08-06] MEDS: BuPROPion XL (24 HR) 150 MG TABLET PO SCH (09:19)
[2018-08-06] MEDS: *HR* HYDROcodone/Acet 5/325 mg TABLET PO PRN ×3 (09:19→20:11)
--- NOTE | 2018-08-06 12:40 | Psychiatry Progress Note ---
Date of Encounter: 08/06/18 Time of Encounter: 12:05 Subjective Interval history: Patient seen today ,case d/w treatment team and is denying suicidal ideation , looking dysphoric and tired , coming off methamphetamine , brief intervation done , states has planned to go to recovery programme. she is anxious and dysphoric, denies cravings. denies psychosis patient doing better, wound care consult done, hand is hurting , on prn medication for pain start discharge planning. Review of Systems Psychiatric: Reports: depression, anxiety, abnormal sleep pattern, irritability Results - Vital Signs Vital Signs: Temp Pulse Resp BP Pulse Ox 97.6 F 87 18 135/86 97 08/06/18 09:00 08/06/18 09:00 08/06/18 09:00 08/06/18 09:00 08/04/18 11:20 Assessment and Plan (1) Suicidal ideation Current visit: Yes Status: Chronic Risks, benefits, side effects, alternatives discussed w/pt: Yes (patient has h/ o cutting self and as per cut too deep this time.) Patient agreeable to treatment: Yes (2) Anxiety Current visit: No Status: Acute Risks, benefits, side effects, alternatives discussed w/pt: Yes Patient agreeable to treatment: Yes (3) Amphetamine use disorder, moderate Current visit: No Status: Acute Risks, benefits, side effects, alternatives discussed w/pt: Yes Patient agreeable to treatment: Yes (4) Bipolar affective disorder Current visit: Yes Status: Acute Risks, benefits, side effects, alternatives discussed w/pt: Yes Patient agreeable to treatment: Yes Qualifiers: Current bipolar episode type: depressed Current episode severity: moderate Qualified Code(s): F31.32 - Bipolar disorder, current episode depressed, moderate Consult Discharge Plan - Plan Referrals: State mental health facility [Outside] (The above appointment is with . Please complete and bring the [facility] intake packet you were provided at the hospital to this appointment. When you come to your first appointment, you will be meeting with business office staff, meeting with a counselor, and developing a treatment plan. You will receive follow- up appointments for on-going services , which could include community support, mental health and substance abuse counseling, groups/partial hospitalization programming and medication assisted treatment. You will also need to bring the following to your first appointment as well: 1) proof of household income (two consecutive pay stubs, social security award letter, bank statement, statement letter from [facility], child support statement, IRS 1040 or W2 form, or a statement from the person who financially supports you stating they help provide for your basic needs), 2) proof of residency (drivers license, a piece of mail showing your address, a statement from person you live with verifying you live at their address), 3) photo ID, 4) your insurance card (if you have commercial insurance you must call to obtain a prior authorization number before you arrive to your first appointment) and 5) if you do not have insurance but have applied for Medicaid, please bring verification you have applied. The above appointment(s) reflects first availability. You may contact the office regularly to check for cancellations that may allow you to be seen sooner.) Julianna Cummings [Advanced Practice Nurse] - 08/09/18 11:20 am (The above appointment is with Julianna Cummings CNP, at [facility]. This appointment is to establish you with a primary care provider. Your needs for medication and/or Vivitrol will be assessed and treated as indicated as well. Please arrive 15 minutes early to complete paperwork. Please bring your insurance card, photo ID and list of current medications to your first appointment. The above appointment(s) reflects first availability. You may contact the office regularly to check for cancellations that may allow you to be seen sooner.) Psychiatry Exam - Constitutional Vitals: Temp Pulse Resp BP Pulse Ox 97.6 F 87 18 135/86 97 08/06/18 09:00 08/06/18 09:00 08/06/18 09:00 08/06/18 09:00 08/04/18 11:20 General appearance: age & developmentally appropriate, well-groomed, well- nourished - Musculoskeletal Gait: slow Station: relaxed Strength & Tone: normal for patient - Psychiatric Patient Orientation: Yes Person, Yes Time, Yes Place Level of alertness: Alert Behavior: cooperative, withdrawn Psychomotor activity: Slowed Eye Contact: Maintains Eye Contact Mood Description: Anxious Patient description of mood: i am tired . Affect description: congruent with mood Speech Volume: Normal Speech pattern: coherent, slowed Language & Vocabulary: consistent with education Thought Process: Intact Thought Content: Yes Intact, Yes Guilt Perceptual Disturbances: No Auditory hallucinations, No Visual hallucinations Attention Span Ability: Capable of Focused Attention Memory Description: Grossly Intact Patient Reliability: Reliable Historian Fund of knowledge: Yes average Intelligence Estimate: Average Judgment: Limited Insight: Partial
[2018-08-06] MEDS ORDERED: Nicotine 21 MG PATCH.TD24 TD STA (15:15)
[2018-08-06] MEDS: Acetaminophen 325 MG TABLET PO PRN (17:03)
[2018-08-07] MEDS: *HR* HYDROcodone/Acet 5/325 mg TABLET PO PRN (06:07)
[2018-08-07] MEDS: Divalproex (12 HR) 250 MG TABLET PO SCH (08:15)
[2018-08-07] MEDS ORDERED: BuPROPion XL (24 HR) 150 MG TABLET PO SCH (09:00)
--- NOTE | 2018-08-07 09:25 | Discharge Summary ---
Date of Encounter: 08/07/18 Time of Encounter: 09:05 Diagnosis - Discharge Diagnosis (1) Suicidal ideation Status: Resolved Comments: Patient at present not in danger to self/others. benefitted from unit milieu and supportive enviornment. (2) Anxiety Status: Chronic Comments: patient has shown improvement with medication and supportive treatment. (3) Amphetamine use disorder, moderate Status: Acute (4) Bipolar affective disorder Status: Acute Comments: Patient showed improvement with treatment and structure enviornment. Qualifiers: Current bipolar episode type: depressed Current episode severity: moderate Qualified Code(s): F31.32 - Bipolar disorder, current episode depressed, moderate Medications - Discharge Medications Prescriptions: BuPROPion XL (24 HR) [Wellbutrin Xl] 300 mg PO DAILY #14 tab.er.24h Divalproex (12 HR) [Depakote (12 HR)] 250 mg PO BID #30 tablet. Albuterol Sulfate [Ventolin Hfa] 2 puff IH Q4H PRN 08/05/18 [History] BuPROPion XL (24 HR) [Wellbutrin Xl] 300 mg PO DAILY #14 tab.er.24h 08/07/18 [Rx ] Divalproex (12 HR) [Depakote (12 HR)] 250 mg PO BID #30 tablet. 08/07/18 [Rx] 3 Allergy/AdvReac Type Severity Reaction Status Date / Time Iodinated Contrast- Oral and Allergy Swelling Verified 08/01/18 20:56 IV Dye of [Iodinated Contrast Media - Lip/Tongue/Throat IV Dye] chlorpromazine AdvReac Cramping Verified 08/01/18 20:56 [From Thorazine] of the Muscles tramadol AdvReac Vomiting Verified 08/01/18 20:56 trazodone AdvReac Joint Pain Verified 08/01/18 20:56 Provider Date of admission: 08/04/18 12:22 Primary care physician: PCP NONE Consults: 08/05/18 12:09 Consult to Wound Care [CONS] Routine Reason for Consult: Self inflicted wound, with sutures Call Completed: Yes Psychiatry Exam - Constitutional Vitals: Temp Pulse Resp BP Pulse Ox 97.8 F 88 16 126/84 97 08/06/18 21:00 08/06/18 21:00 08/06/18 21:00 08/06/18 21:00 08/04/18 11:20 General appearance: age & developmentally appropriate, well-groomed, well- nourished - Musculoskeletal Gait: normal Station: relaxed Strength & Tone: normal for patient - Psychiatric Patient Orientation: Yes Person, Yes Time, Yes Place Level of alertness: Alert Behavior: calm, cooperative Psychomotor activity: Normal Eye Contact: Maintains Eye Contact Mood Description: Anxious Affect description: congruent with mood, full range Speech Volume: Normal Speech pattern: normal rate, normal rhythm, normal tone, fluent, spontaneous Language & Vocabulary: consistent with education Thought Process: Intact Thought Content: No Suicidal ideation, No Homicidal ideation, No Overt delusions Perceptual Disturbances: No Auditory hallucinations, No Visual hallucinations Attention Span Ability: Capable of Focused Attention Memory Description: Grossly Intact Patient Reliability: Reliable Historian Fund of knowledge: Yes abstraction ability Intelligence Estimate: Average Judgment: Good Insight: Partial Hospital Course Hospital course: Ms. Johnson is a 33 year old female was admitted after she came to ED with deep cut on her arm which required treatment , stated she has h/o cutting self and did not wantred to hurt self , was using iv meth and had argument with BF and had panic attack and cut her arm did not realize it was so deep. she denied any si /hi on admission but agreed needed help with her moods and to get back on her bipolar medication. She gained insight after motivational counselling and unit milieu. she wants to be off meth and has plans to go to recovery programme. She has no acute medical problems, her wound was examined by wound care and instructions given to patient. She has good support system. Patient was started on wellbutrin and depakote and showed improvement, no depakote level done as it is low dose , patient slept well, less depress and not suicidal , has some anxiety but not in danger to self/others , no psychosis. Time spent discussing smoking cessation with patient: 3 to 10 minutes Does patient wish to continue nicotine replacement upon disc: No (patient declined at present.) - Time Spent with Patient Total time spent providing and/or coordinating discharge services: Greater than 30 minutes Assessment and Plan - Patient/Caregiver Discharge Instructions Activity: resume usual activities as tolerated Diet: regular diet - Follow up Plan Follow up with: Karissa Dumont [facility] [Outside] - 08/17/18 8:30 am (The above appointment is with Ana Laura Arzola. Please complete and bring the [facility] intake packet you were provided at the hospital to this appointment. When you come to your first appointment, you will be meeting with business office staff, meeting with a counselor, and developing a treatment plan. You will receive follow- up appointments for on-going services, which could include community support, mental health and substance abuse counseling, groups/partial hospitalization programming and medication assisted treatment. You will also need to bring the following to your first appointment as well: 1) proof of household income (two consecutive pay stubs, social security award letter, bank statement, statement letter from [employer], child support statement, IRS 1040 or W2 form, or a statement from the person who financially supports you stating they help provide for your basic needs), 2) proof of residency (drivers license, a piece of mail showing your address, a statement from person you live with verifying you live at their address), 3) photo ID, 4) your insurance card (if you have commercial insurance you must call to obtain a prior authorization number before you arrive to your first appointment) and 5) if you do not have insurance but have applied for Medicaid, please bring verification you have applied. The above appointment(s) reflects first availability. You may contact the office regularly to check for cancellations that may allow you to be seen sooner.) Julianna Cummings [Advanced Practice Nurse] - 08/09/18 11:20 am (The above appointment is with Julianna Cummings CNP, at [facility]. This appointment is to establish you with a primary care provider. Your needs for medication and/or Vivitrol will be assessed and treated as indicated as well. Please arrive 15 minutes early to complete paperwork. Please bring your insurance card, photo ID and list of current medications to your first appointment. The above appointment(s) reflects first availability. You may contact the office regularly to check for cancellations that may allow you to be seen sooner.) Functional capacity at discharge: independent ambulation Overall status at discharge: Stable Disposition: Home, Self-Care Quality - Multiple Antipsychotics Patient discharged on 2 or more antipsychotic medications: No Procedures - Procedures Procedures: Medication Management, Crisis Stabilization, Supportive Therapy, Group Therapy, Psychoeducational Therapy
[2018-08-07 09:44] VITALS: BP 129/85
== END 2018-08-07 13:25 | disposition home or self-care (01) | DRG 384 ==
LOC: EMEROOARM 07:50 → 1ANU 12:22
PROVIDERS: ADMIT Psychiatry & Neurology Psychiatry; ATTEND Psychiatry & Neurology Psychiatry